=== PATIENT | male | born 1940 | race Caucasian/White ===

== ENCOUNTER 2016-10-15 12:18 | Emergency (ER) | payer MEDICARE, OTHER ==
[~2016-10-15] VITALS: Ht 165.1 cm; Wt 68.0 kg
[~2016-10-15 12:18] MED LIST: ASPI-535 PO; ATOR10TA65 PO; BIMA2.5D BOTH EYES; CARV3.1260 PO; CHOL50009 PO; COU1 PO; FURO40TA4 PO; LISI-313 PO; MECL25TA2 PO; POTA-57 PO; ZOLP5TAB PO
[2016-10-15 12:22] VITALS: Ht 165.1 cm; Wt 68.0 kg
[2016-10-15] MEDS ORDERED: SOD CHLORIDE 0.9% 1,000 ML IV STA (12:55)
[2016-10-15] MEDS ORDERED: MECLIZINE 12.5 MG TAB PO ONE (13:00)
[2016-10-15 13:11] LABS: ADD SCAN DIFF NO
[2016-10-15 13:17] LABS: BASOPHIL # 0.1 10^3/ul (0.0-0.1); BASOPHILS % 1.1 % (0.0-2.0); EOSINOPHILS # 0.1 10^3/ul (0.0-0.5); EOSINOPHILS % 1.9 % (0.0-7.0); HEMATOCRIT 45.8 % (42.0-52.0); HEMOGLOBIN 15.6 g/dl (14.0-18.0); LYMPHOCYTES % 15.4 % (15.0-51.0); MEAN CORPUSCULAR HEMOGLOBIN 31.8 pg (29.0-33.0); MEAN CORPUSCULAR HGB CONC 34.1 g/dl (32.0-37.0); MEAN CORPUSCULAR VOLUME 93.3 fl (82.0-101.0); MEAN PLATELET VOLUME 11.4 fl (7.4-10.4); MONOCYTE # 0.4 10^3/ul (0.3-0.9); MONOCYTES % 6.7 % (0.0-11.0); NEUTROPHIL # 4.7 10^3/ul (1.6-7.5); NEUTROPHILS % 74.7 % (39.0-77.0); PLATELET COUNT 188 10^3/UL (140-415); RED BLOOD COUNT 4.91 10^6/ul (4.70-6.10); RED CELL DISTRIBUTION WIDTH 13.5 % (11.5-14.5); WHITE BLOOD COUNT 6.3 10^3/ul (4.8-10.8)
--- NOTE | 2016-10-15 13:33 | RADRPT ---
PROCEDURE: CT Brain without contrast. CLINICAL INDICATION: Syncope TECHNIQUE: Routine CT scan of the brain was performed on a high resolution multi detector scanner without intravenous contrast. One or more of the following dose reduction techniques were used: Auto mated exposure control; Adjustment of the mA and/or kV according to patient size; Use of iterative r econstruction technique. CTDI = 45 mGy. DLP = 630 mGy-cm. COMPARISON: CT brain 10/10/2012 FINDINGS: Hemorrhage: No evidence of intracranial hemorrhage. Acute ischemic changes: No evidence of acute ischemic changes. Mass effect/Midline shift: None. Parenchymal volume: Mild central parenchymal volume loss is evident. Ventricular system: Concordant with parenchymal volume. Chronic changes: Mild chronic-appearing microvascular ischemic changes of the supratentorial white m atter. Atherosclerotic calcifications of the cavernous portions of both internal carotid arteries ar e present. Extracranial soft tissues: Unremarkable. Calvarium: No fractures. Paranasal sinuses: Visualized paranasal sinuses are clear. Mastoid air cells: Visualized mastoid air cells are clear. IMPRESSION: No acute intracranial abnormalities. Mild chronic-appearing microvascular ischemic changes of the supratentorial white matter, similar in appearance. RPTAT: AADD .Brandon Mayes MD, MD Date Time Electronically viewed and signed by .Brandon Mayes MD, on 10/15/2016 13:33 .B/
[2016-10-15 13:34] LABS: ANION GAP 15 (8-16); BLOOD UREA NITROGEN 16 mg/dl (7-20); CALCIUM 9.6 mg/dl (8.4-10.2); CARBON DIOXIDE 25 mmol/L (21-31); CHLORIDE 108 mmol/L (97-110); CREATININE 1.12 mg/dl (0.61-1.24); GLUCOSE 124 mg/dl (70-220); POTASSIUM 3.6 mmol/L (3.5-5.1); SODIUM 144 mmol/L (135-144)
[2016-10-15 13:53] LABS: TROPONIN-I < 0.012 ng/ml (0.00-0.12)
[2016-10-15] MEDS ORDERED: MECL12.574 PO (15:11)
--- NOTE | 2016-10-15 15:17 | ERD ---
ER Documentation Chief Complaint Date/Time DATE: 10/15/16 TIME: 15:11 Chief Complaint Complains working in heat x 3 hours with dizziness and nausea, vomiting HPI This is a 76-year-old male who was working out in the heat prior to arrival for more than 3 hours. The temperature outside is just over 100. Patient states he does not drink enough water and too many sodas. Patient states he felt overheated and started to feel generalized weakness and then he had a flareup of his vertigo. The patient has had vertigo multiple times in the past and takes Antivert as needed. Patient said he suddenly got dizzy that was strong and sudden and severe with nausea vomiting 1. Denies a headache denies chest pain denies shortness of breath denies abdominal pain denies any focal neurological complaints such as numbness weakness visual or speech change. Patient states that he feels better now that he is inside a cool environment. Said he is no longer having the vertigo. ROS All systems reviewed and are negative except as per history of present illness. Medications Home Meds Active Scripts Meclizine Hcl* (Antivert*) 12.5 Mg Tab, 25 MG PO Q6H Y for DIZZINESS, #20 TAB Prov:LIZZ HENRYPrecious DO 10/15/16 Reported Medications Warfarin Sod (Coumadin) 1 Mg Tablet, 1.5 MG PO q mwf 03/04/13 Cholecalciferol* (Vitamin D*) 5,000 Unit Tablet, 53697 UNIT PO qmonth 03/03/13 Bimatoprost* (Lumigan*) 2.5 Ml Drops, 1 DROP BOTH EYES HS 03/03/13 Lisinopril* (Lisinopril*) 5 Mg Tablet, PO DAILY 10/10/12 Meclizine Hcl* (Antivert*) 25 Mg Tablet, 25 MG PO BID 08/25/12 Zolpidem Tartrate (Ambien Saúl) 5 Mg Tablet, 5 MG PO HS Y 08/25/12 Atorvastatin Calcium (Atorvastatin Calcium) 10 Mg Tab, 10 MG PO HS 08/25/12 Potassium Chloride* (Klor-Con*) 20 Meq Tabsr, 20 MEQ PO DAILY 08/25/12 Furosemide (Lasix) 40 Mg Tab, 40 MG PO DAILY 08/25/12 Carvedilol* (Carvedilol*) 3.125 Mg Tablet, 3.125 MG PO BID 08/25/12 Aspirin Ec (Aspir 81) 81 Mg Tablet.dr, PO DAILY 02/06/12 Allergies Allergies: Coded Allergies: No Known Allergies (Verified Allergy, Mild, 11/06/13) PMhx/Soc History of Surgery: Yes (CABG; CAROTID ENDARECTOMY; ) Anesthesia Reaction: No Hx Neurological Disorder: No Hx Respiratory Disorders: Yes (COPD) Hx Cardiac Disorders: Yes (CAD; CABG; CARDIOMYOPATHY) Hx Psychiatric Problems: Yes (ANXIETY) Hx Miscellaneous Medical Probl: No Hx Alcohol Use: No Hx Substance Use: No Hx Tobacco Use: No Smoking Status: Never smoker FmHx Family History: No coronary disease Physical Exam Vitals Vital Signs Date Time Temp Pulse Resp B/P Pulse Ox O2 Delivery O2 Flow Rate FiO2 10/15/16 12:50 75 18 131/84 98 Room Air 10/15/16 12:22 97.4 76 20 176/86 98 Physical Exam Const: Well-developed, well-nourished Head: Atraumatic, normocephalic Eyes: Normal Conjunctiva, PERRLA, EOMI, normal sclera, no nystagmus ENT: Normal External Ears, Nose and Mouth, moist mucus membranes. Neck: Full range of motion. No meningismus, no lymphadenopathy. Resp: Clear to auscultation bilaterally, no wheezing, rhonchi, rales Cardio: Regular rate and rhythm, no murmurs, S1 S2 present Abd: Soft, non tender x 4, non distended. Normal bowel sounds, no guarding or rebound, no pulsitile abdominal masses or bruits Skin: No petechiae or rashes, no ecchymosis , no maculopapular rash Back: No midline or flank tenderness Ext: No cyanosis, or edema, FROM x 4, normal inspection, neurovascularly intact x 4 Neur: Awake and alert, STR 5/5 x 4, sensation intact x 4, no focal findings, cerebellum intact, cannot induce vertigo with Hallpike Psych: Normal Mood and Affect Result Diagram: 10/15/16 1302 10/15/16 1302 Results 24 hrs Laboratory Tests Test 10/15/16 13:02 White Blood Count 6.310^3/ul Red Blood Count 4.9110^6/ul Hemoglobin 15.6g/dl Hematocrit 45.8% Mean Corpuscular Volume 93.3fl Mean Corpuscular Hemoglobin 31.8pg Mean Corpuscular Hemoglobin Concent 34.1g/dl Red Cell Distribution Width 13.5% Platelet Count 43085^3/UL Mean Platelet Volume 11.4fl Neutrophils % 74.7% Lymphocytes % 15.4% Monocytes % 6.7% Eosinophils % 1.9% Basophils % 1.1% Nucleated Red Blood Cells % 0.0/100WBC Neutrophils # 4.710^3/ul Lymphocytes # 1.010^3/ul Monocytes # 0.410^3/ul Eosinophils # 0.110^3/ul Basophils # 0.110^3/ul Nucleated Red Blood Cells # 0.010^3/ul Sodium Level 144mmol/L Potassium Level 3.6mmol/L Chloride Level 108mmol/L Carbon Dioxide Level 25mmol/L Anion Gap 15 Blood Urea Nitrogen 16mg/dl Creatinine 1.12mg/dl Glucose Level 124mg/dl Calcium Level 9.6mg/dl Troponin I < 0.012ng/ml Current Medications Medications (Trade) Dose Ordered Sig/Alida Route PRN Reason Start Time Stop Time Status Last Admin Dose Admin Sodium Chloride (NS) 1,000 ml @ 1,000 mls/hr Q1H STAT IV 10/15/16 12:55 10/15/16 13:54 DC 10/15/16 13:33 Meclizine HCl (Antivert) 25 mg ONCE ONCE PO 10/15/16 13:00 10/15/16 13:01 DC 10/15/16 13:33 Procedures/MDM PROCEDURE: CT Brain without contrast. CLINICAL INDICATION: Syncope TECHNIQUE: Routine CT scan of the brain was performed on a high resolution multi detector scanner without intravenous contrast. One or more of the following dose reduction techniques were used: Automated exposure control; Adjustment of the mA and/or kV according to patient size; Use of iterative reconstruction technique. CTDI = 45 mGy. DLP = 630 mGy-cm. COMPARISON: CT brain 10/10/2012 FINDINGS: Hemorrhage: No evidence of intracranial hemorrhage. Acute ischemic changes: No evidence of acute ischemic changes. Mass effect/Midline shift: None. Parenchymal volume: Mild central parenchymal volume loss is evident. Ventricular system: Concordant with parenchymal volume. Chronic changes: Mild chronic-appearing microvascular ischemic changes of the supratentorial white matter. Atherosclerotic calcifications of the cavernous portions of both internal carotid arteries are present. Extracranial soft tissues: Unremarkable. Calvarium: No fractures. Paranasal sinuses: Visualized paranasal sinuses are clear. Mastoid air cells: Visualized mastoid air cells are clear. IMPRESSION: No acute intracranial abnormalities. Mild chronic-appearing microvascular ischemic changes of the supratentorial white matter, similar in appearance. RPTAT: AADD .Brandon Mayes MD, MD Date Time Electronically viewed and signed by .Brandon Mayes MD, on 10/15/2016 13:33 .B/ CC: LIZZ HENRY DO EKG: Rate/Rhythm: Sinus bradycardia heart rate 57, inverted T waves in leads V1 V2 V3 QRS, ST, QT: NORMAL [place], QRS, QT] Impression: abNORMAL EKG Patient has some heat exhaustion with the flareup of his vertigo. He says after fluids he feels 100% better is ready to go home. Advised him to drink more water and less soda. Advised him to not work in the heat in his age. As he is a higher risk of heat stroke being elderly. Discharge him home on Antivert. Workup is negative. Departure Diagnosis: Primary Impression: Heat exhaustion Encounter type: initial encounter Qualified Code: T67.5XXA - Heat exhaustion , initial encounter Additional Impression: Vertigo Condition: Stable Patient Instructions: Heat Exhaustion, Vertigo, Unspecified LIZZ HENRY DO Oct 15, 2016 15:17
[2016-10-15 15:35] VITALS: BP 151/74; PULSE 76; RESP 15; TEMP 98.3
== END 2016-10-15 15:45 | disposition home or self-care (01) ==
LOC: E/R 12:18
DX: T67.5XXA Heat exhaustion, unspecified, initial encounter (principal); J44.9 Chronic obstructive pulmonary disease, unspecified; I25.10 Atherosclerotic heart disease of native coronary artery without angina pectoris; Z79.01 Long term (current) use of anticoagulants; Z79.82 Long term (current) use of aspirin; Z98.61 Coronary angioplasty status
CPT/HCPCS: 70450; 80048; 84484; 85025; 93005; J7030; 36415

== ENCOUNTER 2018-03-04 14:19 | Emergency (ER) | END 2018-03-04 21:57 | disposition short-term general hospital (02) ==